=== PATIENT | female | born 1965 | race Caucasian/White ===

== ENCOUNTER → 2016-12-09 | Outpatient (CLI) | payer OTHER | END | disposition home or self-care (01) | LOC: CFH 15:50 | PROVIDERS: ATTEND Nurse Practitioner Family | DX: J20.9 Acute bronchitis, unspecified (principal) | CPT/HCPCS: 71020 ==

== ENCOUNTER → 2016-12-17 | Outpatient (CLI) | payer OTHER | END | disposition home or self-care (01) | LOC: CFH 09:47 | PROVIDERS: ATTEND Nurse Practitioner Family | DX: Z12.31 Encounter for screening mammogram for malignant neoplasm of breast (principal) | CPT/HCPCS: G0202 ==

== ENCOUNTER → 2018-09-27 | Outpatient (CLI) | payer OTHER | END | disposition home or self-care (01) | LOC: CFH 13:53 | PROVIDERS: ATTEND Nurse Practitioner Family | DX: Z12.31 Encounter for screening mammogram for malignant neoplasm of breast (principal) | CPT/HCPCS: 77063; 77067 ==

== ENCOUNTER → 2018-11-03 | Outpatient (CLI) | payer OTHER | END | disposition home or self-care (01) | LOC: RAD 07:08 | PROVIDERS: ATTEND Internal Medicine Critical Care Medicine | DX: R05 Cough (principal); K76.89 Other specified diseases of liver; M47.814 Spondylosis without myelopathy or radiculopathy, thoracic region; M41.84 Other forms of scoliosis, thoracic region | CPT/HCPCS: 71250 ==

== ENCOUNTER 2019-07-28 15:15 | Outpatient (CLI) | payer OTHER | END 2019-07-28 23:59 | disposition home or self-care (01) | LOC: CFH 15:15 | PROVIDERS: ATTEND Orthopaedic Surgery | DX: M47.812 Spondylosis without myelopathy or radiculopathy, cervical region (principal) | CPT/HCPCS: 72040 ==

== ENCOUNTER 2020-01-09 12:22 | Outpatient (CLI) | payer BC, OTHER | END 2020-01-09 23:59 | disposition home or self-care (01) | LOC: CFH 12:22 | PROVIDERS: ATTEND Nurse Practitioner Women's Health | DX: N64.4 Mastodynia (principal) | CPT/HCPCS: 76642; 77066; G0279 ==